=== PATIENT | female | born 1975 | race African-American/Black ===

== ENCOUNTER 2016-09-21 00:02 | Emergency (ER) | payer OTHER ==
[2016-09-21] MEDS ORDERED: methylPREDNISolone 125 MG* 2 ML VIAL IV ONE (00:04)
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
[2016-09-21] MEDS ORDERED: Ibuprofen TAB* 600 MG PO ONE (01:21)
[2016-09-21 01:41] VITALS: BP 125/61
== END 2016-09-21 01:40 | disposition home or self-care (01) ==
LOC: ED 00:02
DX: J45.909 Unspecified asthma, uncomplicated (principal)
CPT/HCPCS: 96374; 99283; A9270-GY; J2930

== ENCOUNTER 2017-01-23 12:42 | Emergency (ER) | payer OTHER ==
[2017-01-23 13:03] VITALS: BP 118/63
--- NOTE | 2017-01-23 13:38 | UC ---
Throat Pain/Nasal Mp HPI - HPI Summary HPI Summary: Sore throat with fever , body aches, swollen neck glands, body aches for almost 1 week - History of Current Complaint Chief Complaint: UCRespiratory Stated Complaint: FEVER CONGESTION SORE THROAT Time Seen by Provider: 01/23/17 13:30 Hx Obtained From: Patient Hx Last Menstrual Period: 01/15/17 ?: No Onset/Duration: Sudden Onset, Lasting Weeks - 1, Still Present, Worse Since - past 2 days Severity: Moderate Pain Intensity: 6 Pain Scale Used: 0-10 Numeric Cough: Nonproductive Associated Signs & Symptoms: Positive: Fever - Allergies/Home Medications Allergies/Adverse Reactions: Allergies Allergy/AdvReac Type Severity Reaction Status Date / Time No Known Allergies Allergy Verified 10/05/15 06:55 PMH/Surg Hx/FS Hx/Imm Hx Previously Healthy: Yes Respiratory History: Asthma - Surgical History Surgical History: Yes Surgery Procedure, Year, and Place: C SECTION, 2007,2012 [facility] [place]. BILAT INGUINALHERNIA 1975, [facility] [place]. UMBILICAL HERNIA, 1996, [facility] [place]. 12/09/12 Tubal. TRACHEOSTOMY AT - Family History Known Family History: Positive: None, Other Family History: no reported issues - Social History Occupation: Employed Full-time - laundry room at [employer] Lives: With Family Alcohol Use: Occasionally Alcohol Amount: 1 DRINK MONTH Substance Use Type: None Smoking Status (MU): Never Smoked Tobacco - Immunization History Most Recent Influenza Vaccination: unk Most Recent Tetanus Shot: unk Review of Systems Constitutional: Fever, Chills, Fatigue Skin: Negative Eyes: Negative ENT: Sore Throat Respiratory: Cough Cardiovascular: Negative Gastrointestinal: Negative Genitourinary: Negative Motor: Negative Neurovascular: Negative Musculoskeletal: Negative Neurological: Negative Psychological: Negative Is Patient Immunocompromised?: No All Other Systems Reviewed And Are Negative: Yes Physical Exam Triage Information Reviewed: Yes Appearance: No Pain Distress, Well-Nourished, Ill-Appearing - mild Vital Signs: Initial Vital Signs Temp 98.6 F 01/23/17 13:01 Pulse 84 01/23/17 13:01 Resp 18 01/23/17 13:01 BP 118/63 01/23/17 13:01 Pulse Ox 99 01/23/17 13:01 Vital Signs Reviewed: Yes Eye Exam: Normal Eyes: Positive: Conjunctiva Clear ENT Exam: Normal ENT: Positive: Normal ENT inspection, Hearing grossly normal, Pharyngeal erythema, Nasal drainage, TMs normal. Negative: Nasal congestion, Tonsillar swelling, Tonsillar exudate, Trismus, Muffled/hoarse voice Dental Exam: Normal Neck exam: Normal Neck: Positive: Supple, Nontender, Enlarged Nodes @ - mild anterior cervical lymph. Respiratory Exam: Normal Respiratory: Positive: Chest non-tender, Lungs clear, Normal breath sounds, No respiratory distress, No accessory muscle use Cardiovascular Exam: Normal Cardiovascular: Positive: RRR, No Murmur, Pulses Normal, Brisk Capillary Refill Musculoskeletal Exam: Normal Musculoskeletal: Positive: Strength Intact, ROM Intact, No Edema Neurological Exam: Normal Neurological: Positive: Alert, Muscle Tone Normal Psychological Exam: Normal Skin Exam: Normal Diagnostics - Laboratory Diagnostic Studies Completed/Ordered: RST (+) Throat Pain/Nasal Course/Dx - Course Assessment/Plan: increase fluids, amoxicillin, tylenol, ibuprofen, follow with pcp - Differential Dx/Diagnosis Differential Diagnosis/HQI/PQRI: Laryngitis, Otitis Media, Peritonsillar Abscess , Pharyngitis, Sinusitis, URI Provider Diagnoses: Strep pharyngitis Discharge - Discharge Plan Condition: Stable Disposition: HOME Prescriptions: Amoxicillin PO (*) [Amoxicillin 500 MG CAP*] 500 mg PO TID #30 cap Patient Education Materials: Strep Throat (ED) Forms: *Work Release Referrals: Bob Sinha MD [Primary Care Provider] - If Needed
== END 2017-01-23 13:45 | disposition home or self-care (01) ==
LOC: UCEAST 12:42
DX: J02.0 Streptococcal pharyngitis (principal)
CPT/HCPCS: 87651; 99212; G0463

== ENCOUNTER 2023-08-03 10:33 | Observation (INO) ==
[2023-08-03 11:31] LABS: ABS Lymphocytes 1.5 10^3/uL (1.0-4.8); ABS Neutrophils 9.2 10^3/uL (1.5-7.6); ABS Nucleated RBC 0.01 10^3/ul; Eosinophil % 0.1 %; Hematocrit 35.1 % (35-45); Hemoglobin 11.4 g/dL (11.5-14.3); Lymphocyte % 13.1 %; Mean Corpuscular Hemoglobin 25.8 pg (27-33); Mean Corpuscular Hgb Conc 32.5 g/dL (31-36); Mean Corpuscular Volume 79.3 fL (80-97); Mean Platelet Volume 8.6 fL (7.5-11.2); Nucleated Red Blood Cells % 0.1 %/100WBC (0.0-0.8); Platelet Count 183 10^3/uL (150-450); Red Blood Count 4.42 10^6/uL (3.63-4.92); Red Cell Distribution Width 13.7 % (12-17); White Blood Count 11.8 10^3/uL (3.8-11.8)
[2023-08-03] MEDS: cefTRIAXone 1 gm/50 mL D5W 1 GM/50 ML BAG IV ONE (11:42)
[2023-08-03] MEDS: Lactated Ringers 1000 ml BAG 1,000 ML IV ONE ×3 (11:43→22:12)
[2023-08-03] MEDS: Acetaminophen IV 1 GM/100ML 1,000 MG/100 ML BAG IV ONE (11:43)
[2023-08-03] MEDS: Lactated Ringers SEPSIS* BAG 1,570 ML IV ONE (11:43)
[2023-08-03 12:02] LABS: Albumin 3.8 g/dL (3.2-5.2); Albumin/Globulin Ratio 1.2 (1-3); C Reactive Protein 198.65 mg/L (<8.01); Calcium 9.2 mg/dL (8.6-10.3); Creatinine, Serum 0.97 mg/dL (0.51-0.95); Globulin 3.2 g/dL (2-4); Potassium 3.7 mmol/L (3.5-5.0); Total Bilirubin 1.1 mg/dL (0.2-1.0); eGFR CKD-EPI 71.6 (>60)
[2023-08-03] MEDS: Iohexol 350 (CONTRAST) 500 ML MDV IV ONE (12:48)
[2023-08-03 13:23] LABS: Urine Appearance Turbid; Urine Bilirubin Negative (Negative); Urine Blood 1+ (Negative); Urine Color Yellow; Urine Glucose Negative (Negative); Urine Ketones Trace (Negative); Urine Nitrite Negative (Negative); Urine Protein Trace (Negative); Urine Specific Gravity 1.011 (1.002-1.030); Urine Urobilinogen 1+ (Negative); Urine pH 6.5 (5.0-8.0)
[2023-08-03 13:30] LABS: Urine Bacteria Absent /HPF (Absent); Urine Red Blood Cell 2+(6-10/hpf) /HPF (0-Trace); Urine Squamous Epithelial Cell Present /HPF (Absent); Urine White Blood Cell 3+(>20/hpf) /HPF (0-Trace)
[2023-08-03] MEDS: Lactated Ringers 1000 ml BAG 1,000 ML IV SCH (15:01)
[2023-08-03 15:45] LABS: Activated Partial Thrombo Time 30.1 seconds (26.0-38.0); INR 1.29 (0.83-1.13)
[2023-08-03 15:55] LABS: High Sensitivity Troponin 1 Hr 3 pg/mL (<15)
[2023-08-03] MEDS ORDERED: Albuterol HFA INHALER 8 gm MDI INH PRN (16:03)
[2023-08-03] MEDS: Enoxaparin 40 MG/0.4 ML SYR SUBCUT SCH (18:12)
[2023-08-03] MEDS: Mometasone/Formoter 200/5 MDI INH SCH (19:43)
[2023-08-04 06:57] LABS: ABS Lymphocytes 1.1 10^3/uL (1.0-4.8); ABS Monocytes 0.7 10^3/uL (0.0-0.9); Eosinophil % 0.4 %; Hematocrit 32.9 % (35-45); Hemoglobin 10.8 g/dL (11.5-14.3); Lymphocyte % 11.1 %; Mean Corpuscular Hemoglobin 26.1 pg (27-33); Mean Corpuscular Hgb Conc 32.8 g/dL (31-36); Mean Corpuscular Volume 79.6 fL (80-97); Mean Platelet Volume 8.6 fL (7.5-11.2); Platelet Count 158 10^3/uL (150-450); Red Blood Count 4.13 10^6/uL (3.63-4.92); Red Cell Distribution Width 13.9 % (12-17); White Blood Count 9.8 10^3/uL (3.8-11.8)
[2023-08-04 07:04] LABS: Anion Gap 8 mmol/L (2-16); Blood Urea Nitrogen 5 mg/dL (6-24); C Reactive Protein 226.24 mg/L (<8.01); CO2 Carbon Dioxide 24 mmol/L (22-32); Calcium 8.6 mg/dL (8.6-10.3); Chloride 106 mmol/L (101-111); Creatinine, Serum 0.74 mg/dL (0.51-0.95); Glucose 104 mg/dL (70-100); Sodium 138 mmol/L (135-145); eGFR CKD-EPI 99.1 (>60)
[2023-08-04] MEDS: [UNRECOGNIZED DRUG - OTHER] PO SCH (09:13)
[2023-08-04] MEDS: NORGESTIMATE ETHINYL ESTRADIOL PO SCH (09:13)
[2023-08-04 09:45] VITALS: BP 120/79
[2023-08-04] MEDS: Potassium Chlor 20 meq TAB.ER PO ONE (11:03)
[2023-08-04] MEDS: cefTRIAXone 1 gm/50 mL D5W 1 GM/50 ML BAG IV SCH (11:56)
== END 2023-08-04 14:45 | disposition home or self-care (01) ==
LOC: ED 10:33 → EDHOLD 10:33 → SUATTDRO 15:32 → MED 16:24
PROVIDERS: ADMIT Internal Medicine; ATTEND Hospitalist